=== PATIENT | female | born 1990 ===

== ENCOUNTER 2017-03-21 21:45 | Emergency (ER) | payer OTHER ==
--- NOTE | 2017-03-21 22:15 | ED PDOC ---
Arrival/HPI <Jaguar Hill - Last Filed: 03/21/17 23:07> - History of Present Illness Time/Duration: > week Symptom Onset: Gradual Symptom Course: Intermittent Quality: Tightness Severity Level: 8 Activities at Onset: Rest Context: Home <AL ARRIETA - Last Filed: 03/22/17 06:31> - General Chief Complaint: Female Genitourinary - History of Present Illness Narrative History of Present Illness (Text): 03/21/17 22:15 27yo F with PMH hemorrhoids who states that she has been constipated for one week. pt states that she had a D&C last Friday for elective of 5 week fetus, and procedure required excess anesthesia. Pt states that her last BM before that was the day before the procedure (8 days ago). Pt went to PMD Dr. Marie on Friday who recommended that she go to ER, where they worked her up for hemorrhoids and an anal fissure, and told to f/u with surgery for removal of her hemorrhoids. Pt states that she is still constipated, and whenever she strains to have a BM, she has vaginal bleeding s/p D&C and cannot pass stools. Pt states that she has been eating unhealthy since the of her boyfriend one year ago, and drinking more ETOH to cope with it for the first few months but has been seeing a psych outpatient and has decreased her drinking over the past few months. Pt smokes tobacco 1/2 pack/day and uses marijuana occasionally to cope with her abdominal pain. pt has tried several OTC meds but constipation does not resolve. pt denies fevers, n/v, cough, cp, sob, rashes. PSH: D&C 9 yrs ago (elective ) and one week ago (MEENAKSHI,MARK) Past Medical History - Provider Review Nursing Documentation Reviewed: Yes - Past History Past History: Non-Contributing - Past Medical History Past Medical History: Non-Contributing - Cardiac Hx Cardiac Disorders: No - Pulmonary Hx Respiratory Disorders: No - Neurological Hx Neurological Disorder: No - HEENT Hx HEENT Disorder: No - Renal Hx Renal Disorder: No - Endocrine/Metabolic Hx Endocrine Disorders: No - Hematological/Oncological Hx Blood Disorders: No - Integumentary Hx Dermatological Disorder: No - Musculoskeletal/Rheumatological Hx Musculoskeletal Disorders: No - Gastrointestinal Hx Hemorrhoids: Yes - Psychiatric Hx Substance Use: Yes (marijuana) - Surgical History Hx Appendectomy: Yes (2014) Hx Dilation and Curettage: Yes (03/14/2017 and 9 yrs ago) <AL ARRIETA - Last Filed: 03/22/17 06:31> Family/Social History - Physician Review Nursing Documentation Reviewed: Yes Family/Social History: No Known Family HX Smoking Status: Heavy Smoker > 10 Cigarettes Daily Hx Alcohol Use: Yes Frequency of alcohol use: Few days per week Hx Substance Use: Yes (marijuana) <AL ARRIETA - Last Filed: 03/22/17 06:31> Allergies/Home Meds <Jaguar Hill - Last Filed: 03/21/17 23:07> <AL ARRIETA - Last Filed: 03/22/17 06:31> Allergies/Adverse Reactions: Allergies Penicillins Allergy (Verified 03/21/17 21:50) RASH Home Medications: Home Meds Medication Instructions Recorded Confirmed Acetaminophen [Non-Aspirin Pain 500 mg PO BID PRN 03/21/17 03/21/17 Relief] Hydrocortisone Acetate 25 mg RC PRN PRN 03/21/17 03/21/17 [Hemmorex-Hc] Lidocaine HCl [Glydo] 6 ml TP PRN PRN 03/21/17 03/21/17 Magnesium Citrate [Citroma] 1.75 gm PO PRN PRN 03/21/17 03/21/17 Misoprostol 200 mcg PO Q6H 03/21/17 03/21/17 Witch Lidya Tracy [Witch Lidya] 480 ml TP PRN PRN 03/21/17 03/21/17 Review of Systems - Physician Review All systems were reviewed & negative as marked: Yes - Review of Systems Constitutional: Normal. absent: Fevers Eyes: Normal ENT: Normal Gastrointestinal: Abdominal Pain, Constipation Genitourinary Female: Vaginal Bleeding <AL ARRIETA - Last Filed: 03/22/17 06:31> Physical Exam Vital Signs Reviewed: Yes Appearance: Positive for: Well-Appearing Pain Distress: None Mental Status: Positive for: Alert and Oriented X 3 - Systems Exam Head: Present: Atraumatic, Normocephalic Pupils: Present: PERRL Extroacular Muscles: Present: EOMI Conjunctiva: Present: Normal Mouth: Present: Moist Mucous Membranes Neck: Present: Normal Range of Motion Respiratory/Chest: Present: Clear to Auscultation, Good Air Exchange Cardiovascular: Present: Regular Rate and Rhythm, Normal S1, S2 Abdomen: Present: Tenderness (mild ttp diffuse), Scars. No: Distention, Normal Bowel Sounds (hypoactive bowel sounds), Peritoneal Signs Rectal: Present: Rectal Tenderness, Hemorrhoids (external non-thrombosed). No: Occult Blood, Gross Blood, Fissures Back: Present: Normal Inspection. No: CVA Tenderness Upper Extremity: Present: Normal Inspection Lower Extremity: Present: Normal Inspection Neurological: Present: CN II-XII Intact, Speech Normal Skin: Present: Warm, Dry Psychiatric: Present: Alert, Oriented x 3, Anxious <AL ARRIETA - Last Filed: 03/22/17 06:31> Vital Signs Temp Pulse Resp BP Pulse Ox 03/22/17 05:15 64 18 106/44 L 100 03/22/17 01:18 18 99 03/22/17 00:36 99.0 F 97 H 17 100 03/21/17 21:50 99 F 89 16 115/70 96 Medical Decision Making <Jaguar Hill - Last Filed: 03/21/17 23:07> - Lab Interpretations I have reviewed the lab results: Yes <AL ARRIETA - Last Filed: 03/22/17 06:31> ED Course and Treatment: 03/21/17 23:07 Pt. seen and evaluated with the medical billing service.Agree with HPI,clinical findings,assessment and treatment plan (Jaguar Hill) Impression: 27yo F presenting with constipation and external hemorrhoids Plan: - Reassess and disposition - CT abd/pelvis w/ IV contrast - Labs Progress Notes: 03/22/17 00:25 pt reassessed and states she tried to have BM but only urinated. resting comfortably with brother in room. 03/22/17 03:04 CT Abdomen and Pelvis w/ IV contrast: FINDINGS: Lower thorax: No acute findings. ABDOMEN: Liver: Unremarkable. No mass. Gallbladder and bile ducts: No calcified stones. No ductal dilation. Pancreas: No ductal dilation. No mass. Spleen: No splenomegaly. Adrenals: No mass. Kidneys and ureters: Too small to characterize lesion within LEFT kidney. No hydronephrosis. Stomach and bowel: Moderate to large stool within rectum. Minimal stranding in presacral space about rectum. No definite mural thickening. No obstruction. Appendix: No findings to suggest acute appendicitis. PELVIS: Bladder: Unremarkable. Reproductive: Unremarkable as visualized. ABDOMEN and PELVIS: Intraperitoneal space: No significant fluid collection. No free air. Bones/joints: No acute fracture. Soft tissues: Unremarkable. Vasculature: Retroaortic LEFT renal vein. No aneurysm. Lymph nodes: No pathologically enlarged lymph nodes. IMPRESSION: 1. Fecal retention. 2. Incidental/non-acute findings are described above. Dictated By: Amadeo Pereyra MD Dictated Date/Time: 03/22/17 0252 03/22/17 05:51 reassessment: pt had large BM and feels much better. discussed with pt that she would be d/c with medication to help her ease her BM and to follow up with her surgery appt as planned and follow up with healthcare insurance sales agent and PMD (AL ARRIETA) - Lab Interpretations Lab Results: 03/21/17 22:25 03/21/17 22:25 Lab Results 03/22/17 01:29: Urine Color Yellow, Urine Appearance Clear, Urine pH 6.0, Ur Specific [place] 1.020, Urine Protein Negative, Urine Glucose (UA) Negative, Urine Ketones Negative, Urine Blood Moderate H, Urine Nitrate Negative, Urine Bilirubin Negative, Urine Urobilinogen 0.2, Ur Leukocyte Esterase Negative, Urine RBC 15 - 20, Urine WBC 1 - 3, Ur Epithelial Cells 0 - 2, Urine Bacteria Many, Urine Other Mucus 03/22/17 00:00: Beta HCG, Quant 108.14 H 03/21/17 22:25: Sodium 142, Potassium 4.0, Chloride 103, Carbon Dioxide 25, Anion Gap 18, BUN 9, Creatinine 0.6, Est GFR ( Amer) > 60, Est GFR (Non- Af Amer) > 60, Random Glucose 106, Calcium 9.5, Phosphorus 4.4, Magnesium 2.1, Total Bilirubin 0.3, AST 29, ALT 35, Alkaline Phosphatase 67, Total Protein 7.9 , Albumin 4.5, Globulin 3.3, Albumin/Globulin Ratio 1.4 03/21/17 22:25: WBC 8.9, RBC 4.56, Hgb 14.0, Hct 41.4, MCV 90.8, MCH 30.7, MCHC 33.8, RDW 13.5, Plt Count 236, MPV 11.6 H, Gran % 57.0, Lymph % (Auto) 36.3 H, [place] % (Auto) 4.7, Eos % (Auto) 1.7, Baso % (Auto) 0.3, Gran # 5.09, Lymph # 3.2 , [place] # 0.4, Eos # 0.2, Baso # 0.03 - RAD Interpretation Radiology Orders: 03/21/17 23:02 ABD & PELVIS IV CONTRAST ONLY [CT] Stat - Medication Orders Current Medication Orders: Discontinued Medications Hydrocortisone (Anusol-Hc) 0 gm [place] ONCE ONE Stop: 03/21/17 22:37 Last Admin: 03/22/17 00:15 Dose: 1 applic Magnesium Citrate (Citrate Of Mag) 300 ml PO ONCE ONE Stop: 03/21/17 22:37 Last Admin: 03/21/17 22:49 Dose: 300 ml Sodium Phosphate (Fleet Enema) 135 ml RC STAT STA Stop: 03/21/17 23:50 Last Admin: 03/22/17 03:28 Dose: 135 ml - PA / SENIOR STAFF PSYCHOLOGIST / Resident Statement / has reviewed & agrees with the documentation as recorded. / has examined the patient and agrees with the treatment plan. <Jaguar Hill - Last Filed: 03/21/17 23:07> Disposition/Present on Arrival <Jaguar Hill - Last Filed: 03/21/17 23:07> - Present on Arrival Any Indicators Present on Arrival: No History of DVT/PE: No History of Uncontrolled Diabetes: No Urinary Catheter: No History of Decub. Ulcer: No History Surgical Site Infection Following: None - Disposition Have Diagnosis and Disposition been Completed?: Yes Disposition Time: 05:54 Patient Plan: Discharge <AL ARRIETA - Last Filed: 03/22/17 06:31> - Disposition Diagnosis: Constipation, Fecal impaction, Hemorrhoid Disposition: HOME/ ROUTINE Condition: GOOD Discharge Instructions (ExitCare): Constipation (ED), Constipation (DC), Constipation (GEN), Hemorrhoids (ED), High Fiber Diet (ED), Fecal Impaction (ED) Additional Instructions: - please follow up with your surgery appt for your hemorrhoid care - please follow up with your PMD and Hotel Custodian for continued management - please take your Miralax as prescribed if needed - if you experience worsening of abdominal pain, vaginal bleeding or rectal bleeding, please go to ER for workup Prescriptions: Polyethylene Glycol 3350 [Miralax] 17 gm PO DAILY PRN #5 ml PRN Reason: Constipation Forms: [employer] (Wolof)
[2017-03-21] MEDS ORDERED: Hydrocortisone 2.5% Rectal Cream(30 gm) PR ONE (22:36)
[2017-03-21] MEDS ORDERED: Magnesium Citrate Oral SOL (300 ml) PO ONE (22:36)
[2017-03-21 23:50] LABS: ALB/GLOB RATIO 1.4 (1.1-1.8); ALKALINE PHOSPHATASE 67 U/L (38-126); ALT/SGPT 35 U/L (7-56); AST/SGOT 29 U/L (14-36); BILIRUBIN,TOTAL 0.3 mg/dL (0.2-1.3); BLOOD UREA NITROGEN 9 mg/dL (7-21); CALCIUM 9.5 mg/dL (8.4-10.5); CARBON DIOXIDE 25 mmol/L (21-33); CHLORIDE 103 mmol/L (98-107); GFR AFRICAN-AMERICAN > 60; GLUCOSE,RANDOM 106 mg/dL (70-110); MAGNESIUM 2.1 mg/dL (1.7-2.2); PHOSPHOROUS 4.4 mg/dL (2.5-4.5); SODIUM 142 mmol/L (132-148); TOTAL PROTEIN 7.9 g/dL (5.8-8.3)
[2017-03-21 23:56] LABS: BASO # 0.03 K/mm3 (0.0-2.0); BASO % 0.3 % (0.0-3.0); EOS # 0.2 (0.0-0.7); EOS % 1.7 % (1.5-5.0); GRAN # 5.09 (1.4-6.5); HEMATOCRIT 41.4 % (36.0-48.0); LYMPH # 3.2 (1.2-3.4); LYMPH % 36.3 % (22.0-35.0); MEAN CELL VOLUME 90.8 fl (80.0-105.0); MEAN CORPUSCULAR HEMOGLOBIN 30.7 pg (25.0-35.0); MEAN CORPUSCULAR HGB CONC 33.8 g/dl (31.0-37.0); MEAN PLATELET VOLUME 11.6 fl (7.0-11.0); MONO # 0.4 (0.1-0.6); MONO % 4.7 % (1.0-6.0); RED CELL DISTRIBUTION WIDTH 13.5 % (11.5-14.5); WHITE BLOOD COUNT 8.9 10^3/ul (4.5-11.0)
[2017-03-22 00:37] VITALS: TEMP 99
[2017-03-22 01:19] VITALS: RESP 18
[2017-03-22 01:40] LABS: URINE BILIRUBIN NEGATIVE (NEGATIVE); URINE BLOOD MODERATE (NEGATIVE); URINE GLUCOSE (UA) NEGATIVE (NEGATIVE); URINE KETONE NEGATIVE (NEGATIVE); URINE LEUKOCYTE ESTERASE NEGATIVE Leu/uL (NEGATIVE); URINE PROTEIN NEGATIVE mg/dL (<30 mg/dL); URINE UROBILINOGEN 0.2 E.U./dL (<1 E.U./dL)
[2017-03-22 01:46] LABS: URINE APPEARANCE CLEAR (CLEAR); URINE COLOR YELLOW (YELLOW)
[2017-03-22 02:18] LABS: URINE BACTERIA MANY (NEG); URINE EPITHELIAL CELLS 0 - 2 /hpf (0-5); URINE RBC 15 - 20 /hpf (0-2)
--- NOTE | 2017-03-22 02:52 | CT ---
EXAM: CT Abdomen and Pelvis With Intravenous Contrast CLINICAL HISTORY: 27 years old, female; Pain; Abdominal pain; Acute; Prior surgery; Surgery date: 3-7 days post-operative; Surgery type: Termination of on 03/13/17; Additional info: Constipation TECHNIQUE: Axial computed tomography images of the abdomen and pelvis with intravenous contrast. All CT scans at this facility use one or more dose reduction techniques, viz.: automated exposure control; ma/kV adjustment per patient size (including targeted exams where dose is matched to indication; i.e. head); or iterative reconstruction technique. Coronal and sagittal reformatted images were created and reviewed. CONTRAST: 100 mL of [id number] administered intravenously. COMPARISON: No relevant prior studies available. FINDINGS: Lower thorax: No acute findings. ABDOMEN: Liver: Unremarkable. No mass. Gallbladder and bile ducts: No calcified stones. No ductal dilation. Pancreas: No ductal dilation. No mass. Spleen: No splenomegaly. Adrenals: No mass. Kidneys and ureters: Too small to characterize lesion within LEFT kidney. No hydronephrosis. Stomach and bowel: Moderate to large stool within rectum. Minimal stranding in presacral space about rectum. No definite mural thickening. No obstruction. Appendix: No findings to suggest acute appendicitis. PELVIS: Bladder: Unremarkable. Reproductive: Unremarkable as visualized. ABDOMEN and PELVIS: Intraperitoneal space: No significant fluid collection. No free air. Bones/joints: No acute fracture. Soft tissues: Unremarkable. Vasculature: Retroaortic LEFT renal vein. No aneurysm. Lymph nodes: No pathologically enlarged lymph nodes. IMPRESSION: 1. Fecal retention. 2. Incidental/non-acute findings are described above.
[2017-03-22 05:21] VITALS: BP 106/44; PULSE 64; O2SAT 100
== END 2017-03-22 06:10 | disposition home or self-care (01) ==
LOC: ED 21:45
DX: K59.00 Constipation, unspecified (principal); K64.4 Residual hemorrhoidal skin tags

== ENCOUNTER 2017-11-07 17:11 | Emergency (ER) | payer BC, OTHER ==
[2017-11-07 18:15] VITALS: TEMP 99.3
[2017-11-07 18:55] LABS: BASO # 0.02 K/mm3 (0.0-2.0); BASO % 0.2 % (0.0-3.0); EOS # 0.2 (0.0-0.7); EOS % 1.8 % (1.5-5.0); GRAN # 8.01 (1.4-6.5); GRAN % 65.8 % (50.0-68.0); HEMOGLOBIN 12.3 g/dL (12.0-16.0); LYMPH # 3.4 (1.2-3.4); LYMPH % 28.3 % (22.0-35.0); MEAN CELL VOLUME 88.2 fl (80.0-105.0); MEAN CORPUSCULAR HEMOGLOBIN 30.2 pg (25.0-35.0); MEAN CORPUSCULAR HGB CONC 34.3 g/dl (31.0-37.0); MEAN PLATELET VOLUME 11.2 fl (7.0-11.0); MONO # 0.5 (0.1-0.6); MONO % 3.9 % (1.0-6.0); RBC 4.07 10^6/uL (3.5-6.1); RED CELL DISTRIBUTION WIDTH 13.6 % (11.5-14.5); WHITE BLOOD COUNT 12.2 10^3/ul (4.5-11.0)
[2017-11-07 18:56] LABS: PH,URINE 6.5 (4.7-8.0); URINE APPEARANCE CLEAR (CLEAR); URINE BILIRUBIN NEGATIVE (NEGATIVE); URINE BLOOD MODERATE (NEGATIVE); URINE COLOR YELLOW (YELLOW); URINE GLUCOSE (UA) NEGATIVE (NEGATIVE); URINE LEUKOCYTE ESTERASE NEGATIVE Leu/uL (NEGATIVE); URINE PROTEIN TRACE mg/dL (<30 mg/dL); URINE UROBILINOGEN 0.2 E.U./dL (<1 E.U./dL)
[2017-11-07 19:09] LABS: URINE BACTERIA FEW (NEG); URINE EPITHELIAL CELLS 0 - 2 /hpf (0-5); URINE RBC TNTC /hpf (0-2); URINE WBC 0 - 2 /hpf (0-6)
[2017-11-07 19:10] LABS: ALB/GLOB RATIO 1.3 (1.1-1.8); ALBUMIN 3.8 g/dL (3.0-4.8); ALT/SGPT 42 U/L (7-56); AST/SGOT 20 U/L (14-36); BLOOD UREA NITROGEN 7 mg/dL (7-21); CALCIUM 8.7 mg/dL (8.4-10.5); GFR AFRICAN-AMERICAN > 60; GFR NON-AFRICAN AMERICAN > 60
--- NOTE | 2017-11-07 19:48 | ED PDOC ---
Arrival/HPI - General Historian: Patient - History of Present Illness Time/Duration: Prior to Arrival - General Chief Complaint: Abdominal Pain Time Seen by Provider: 11/07/17 17:16 - History of Present Illness Narrative History of Present Illness (Text): 11/07/17 19:30 Patient is a 27 F with a past history of missed currently 8 weeks presenting with complaints of abdominal pain in her left lower quadrant which began two days ago. Patient states that she became concerned when she noticed her symptoms such as nausea and breast tenderness went away. Patient states the abdominal pain in her LLQ radiated to mid lumbar spine. Rates the pain a 7/10, describing it as dull. OBGYN history history: miscarriage at 9 weeks, vacuum evacuation procedure at 15 weeks STD history: denies First menstrual cycle: 13 years old normally every 28 days lasting 4-5 days (Angelito Xiao) Past Medical History - Provider Review Nursing Documentation Reviewed: Yes - Past History Past History: Non-Contributing - Infectious Disease Hx of Infectious Diseases: None - Reproductive Menopause: No - Past Medical History Past Medical History: Non-Contributing - Cardiac Hx Cardiac Disorders: No - Pulmonary Hx Respiratory Disorders: No - Neurological Hx Neurological Disorder: No - HEENT Hx HEENT Disorder: No - Renal Hx Renal Disorder: No - Endocrine/Metabolic Hx Endocrine Disorders: No - Hematological/Oncological Hx Blood Disorders: No - Integumentary Hx Dermatological Disorder: No - Musculoskeletal/Rheumatological Hx Musculoskeletal Disorders: No - Gastrointestinal Hx Hemorrhoids: Yes - Psychiatric Hx Substance Use: No - Surgical History Hx Appendectomy: Yes - Anesthesia Hx Anesthesia: Yes Hx Anesthesia Reactions: No Hx Malignant Hyperthermia: No - Suicidal Assessment Feels Threatened In Home Enviroment: No Family/Social History - Physician Review Nursing Documentation Reviewed: Yes Family/Social History: Other (lupus) Smoking Status: Light Smoker < 10 Cigarettes Daily Hx Alcohol Use: Yes Hx Substance Use: No Allergies/Home Meds Allergies/Adverse Reactions: Allergies Penicillins Allergy (Verified 11/07/17 17:38) RASH Home Medications: Home Meds Medication Instructions Recorded Confirmed Pnv No.95/Ferrous Fum/Folic AC 1 tab PO DAILY 11/07/17 11/07/17 [] Review of Systems - Review of Systems Constitutional: Normal. absent: Fatigue, Weight Change Eyes: Normal. absent: Vision Changes Respiratory: Normal. absent: SOB, Cough Cardiovascular: Normal. absent: Chest Pain, Palpitations Gastrointestinal: Abdominal Pain (LLQ). absent: Diarrhea, Nausea, Vomiting Genitourinary Female: absent: Dysuria Musculoskeletal: Back Pain (Mid lower lumbar) Skin: absent: Rash Neurological: absent: Headache, Dizziness Psychiatric: absent: Anxiety Physical Exam Vital Signs Reviewed: Yes Temperature: Afebrile Blood Pressure: Normal Pulse: Regular Respiratory Rate: Normal Appearance: Positive for: Well-Appearing, Non-Toxic, Comfortable Pain Distress: None Mental Status: Positive for: Alert and Oriented X 3 - Systems Exam Head: Present: Atraumatic, Normocephalic Pupils: Present: PERRL Extroacular Muscles: Present: EOMI Conjunctiva: Present: Normal Mouth: Present: Moist Mucous Membranes Neck: Present: Normal Range of Motion Respiratory/Chest: Present: Clear to Auscultation. No: Respiratory Distress, Accessory Muscle Use Cardiovascular: Present: Regular Rate and Rhythm, Normal S1, S2. No: Murmurs Abdomen: Present: Tenderness (LLQ), Normal Bowel Sounds. No: Distention, Peritoneal Signs, Rebound, Guarding, [place]Bur[place]'s Point Tender Genitourinary/Pelvic Exam: No: Vaginal Discharge, Vaginal Bleeding Upper Extremity: Present: Normal Inspection Lower Extremity: Present: Normal Inspection Neurological: Present: GCS=15, CN II-XII Intact, Speech Normal Skin: Present: Warm, Normal Color Psychiatric: Present: Alert, Oriented x 3, Normal Insight, Normal Concentration Vital Signs Temp Pulse Resp BP Pulse Ox 11/07/17 21:13 74 18 115/74 100 11/07/17 17:34 99.3 F 72 16 112/66 98 Medical Decision Making Re-evaluation Time: 22:28 - Lab Interpretations Interpretation: All labs normal - RAD Interpretation Community Relations Representative: Radiologist ED Course and Treatment: Patient Seen With Resident: In agreement with resident note which contains more details about the patient. Patient was seen and evaluated with resident. Came up with plan and treatment together. A 27 year old female with left lower abdominal pain, 8 weeks . Additional HPI as noted by resident. On physical exam, patient has LLQ abdominal pain and tenderness. Ordered OB transvaginal US and labs. (Pete Yee) Transvaginal/abdominal US FINDINGS: Gestation: There is a single living intrauterine gestation. [place] rump length measures 54.1 mm. There is a heart rate of 186 beats per minute. Gestational sac has mean diameter 48.6 mm. A yolk sac is present, internal diameter measures 3 mm Uterus: Uterus measures approximately 11.3 x 9 x 9.2 cm. Cervix is closed, 4.5 cm in length.. Ovaries: Left ovary measures approximately 3.1 x 1.7 x 2.3 cm. Right ovary measures approximately 3 x 1.9 x 2.6 cm. There is flow in both ovaries on Doppler imaging. Free fluid: There is no free fluid. IMPRESSION: 11 week 2 day mcdaniel intrauterine gestation, estimated date of delivery 11/07/17 22:30 Patient was in a champion to leave the hospital did not seemed as concerned about the results just said she had to leave now. (Angelito Xiao) - Lab Interpretations Lab Results: 11/07/17 18:44 11/07/17 18:44 Lab Results 11/07/17 18:44: Urine Color Yellow, Urine Appearance Clear, Urine pH 6.5, Ur Specific [place] 1.025, Urine Protein Trace H, Urine Glucose (UA) Negative, Urine Ketones 15 H, Urine Blood Moderate H, Urine Nitrate Negative, Urine Bilirubin Negative, Urine Urobilinogen 0.2, Ur Leukocyte Esterase Negative, Urine RBC Tntc, Urine WBC 0 - 2, Ur Epithelial Cells 0 - 2, Urine Bacteria Few 11/07/17 18:44: Beta HCG, Quant 94257.00 H 11/07/17 18:44: Sodium 141, Potassium 3.7, Chloride 108 H, Carbon Dioxide 21, Anion Gap 16, BUN 7, Creatinine 0.6 L, Est GFR ( Amer) > 60, Est GFR (Non -Af Amer) > 60, Random Glucose 88, Calcium 8.7, Total Bilirubin 0.2, AST 20, ALT 42, Alkaline Phosphatase 49, Total Protein 6.7, Albumin 3.8, Globulin 2.9, Albumin/Globulin Ratio 1.3 11/07/17 18:44: WBC 12.2 H D, RBC 4.07, Hgb 12.3, Hct 35.9 L, MCV 88.2, MCH 30.2 , MCHC 34.3, RDW 13.6, Plt Count 213, MPV 11.2 H, Gran % 65.8, Lymph % (Auto) 28.3, [place] % (Auto) 3.9, Eos % (Auto) 1.8, Baso % (Auto) 0.2, Gran # 8.01 H, Lymph # (Auto) 3.4, [place] # (Auto) 0.5, Eos # (Auto) 0.2, Baso # (Auto) 0.02 - RAD Interpretation Radiology Orders: 11/07/17 18:10 OB TRANSVAGINAL [US] Stat Disposition/Present on Arrival - Present on Arrival Any Indicators Present on Arrival: No History of DVT/PE: No History of Uncontrolled Diabetes: No Urinary Catheter: No History of Decub. Ulcer: No History Surgical Site Infection Following: None - Disposition Have Diagnosis and Disposition been Completed?: Yes Disposition Time: 21:11 Patient Plan: Discharge - Disposition Diagnosis: Abdominal pain during Disposition: HOME/ ROUTINE Condition: FAIR Additional Instructions: Mrs. Ma, thank you for letting us take care of you today. The emergency medical care you received today was directed at your acute symptoms. If you were prescribed any medication, please fill it and take as directed. It may take several days for your symptoms to resolve. Return to the Emergency Department if your symptoms worsen, do not improve, or if you have any other problems. Please contact your doctor or call one of the physicians/clinics you have been referred to that are listed on the Patient Visit Information form that is included in your discharge packet. Bring any paperwork you were given at discharge with you along with any medications you are taking to your follow up visit. Our treatment cannot replace ongoing medical care by a primary care provider (PCP) outside of the emergency department. Thank you for allowing the [facility] team to be part of your care today. If you had an X-Ray or CT scan: A Radiologist will review the ED reading if any change in treatment is needed we will contact you. If you had a blood, urine, or wound culture: It will take several days for the results, if any change in treatment is needed we will contact you. If you had an STI test: It will take 48 hours for the results. Please call after 1 week if you have not heard back. Referrals: [facility] Redarshana, [Primary Care Provider] - Follow up with primary Forms: [employer] (Kinyarwanda)
--- NOTE | 2017-11-07 20:54 | US ---
EXAM: US First Trimester, Transabdominal US , Transvaginal EXAM DATE/TIME: 11/07/2017 6:10 PM CLINICAL HISTORY: 27 years old, female; Pain; complicated by abdominal or pelvic pain; Right lower quadrant; First trimester; Gestational age or lmp: 11weeks 2 days; ; Additional info: Llq pain with TECHNIQUE: Real-time transabdominal and transvaginal obstetrical ultrasound of the maternal pelvis and a first trimester with image documentation. Transvaginal imaging was used for better evaluation of the fetus and adnexa. COMPARISON: CT - ABD PELVIS IV CONTRAST ONLY 2017-03-22 01:52 FINDINGS: Gestation: There is a single living intrauterine gestation. [place] rump length measures 54.1 mm. There is a heart rate of 186 beats per minute. Gestational sac has mean diameter 48.6 mm. A yolk sac is present, internal diameter measures 3 mm Uterus: Uterus measures approximately 11.3 x 9 x 9.2 cm. Cervix is closed, 4.5 cm in length.. Ovaries: Left ovary measures approximately 3.1 x 1.7 x 2.3 cm. Right ovary measures approximately 3 x 1.9 x 2.6 cm. There is flow in both ovaries on Doppler imaging. Free fluid: There is no free fluid. IMPRESSION: 11 week 2 day mcdaniel intrauterine gestation, estimated date of delivery 05/27/18
[2017-11-07 21:24] VITALS: BP 115/74; PULSE 74; RESP 18; O2SAT 100
== END 2017-11-07 21:13 | disposition home or self-care (01) ==
LOC: ED 17:11
DX: O26.91 Pregnancy related conditions, unspecified, first trimester (principal); R10.9 Unspecified abdominal pain; Z3A.11 11 weeks gestation of pregnancy

== ENCOUNTER 2018-03-26 00:32 | Emergency (ER) | payer BC ==
[2018-03-26 00:48] VITALS: TEMP 98
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
[2018-03-26 03:15] VITALS: BP 124/89; PULSE 85; RESP 18; O2SAT 100
--- NOTE | 2018-03-26 09:48 | RAD ---
HISTORY: Shortness of breath COMPARISON: No prior. TECHNIQUE: Chest PA and lateral FINDINGS: LINES AND TUBES: None. LUNG AND PLEURA: The lungs are well inflated and clear. No pleural effusion or pneumothorax. HEART AND MEDIASTINUM: The heart is not enlarged. The hilar and mediastinal contours are within normal limits. SKELETAL STRUCTURES: The bony structures are within normal limits for the patient's age. VISUALIZED UPPER ABDOMEN: Normal. OTHER FINDINGS: None. IMPRESSION: No active pulmonary disease.
--- NOTE | 2018-03-26 10:23 | CARD ---
APPROVED REPORT Date of service: 03/26/2018 EKG Measurement Heart [id number] <Conclusion> Normal sinus rhythm Normal ECG
== END 2018-03-26 02:37 | disposition home or self-care (01) ==
LOC: ED 00:32
DX: J70.5 Respiratory conditions due to smoke inhalation (principal); F17.210 Nicotine dependence, cigarettes, uncomplicated